=== PATIENT | female | born 1980 | race Caucasian/White ===

== ENCOUNTER → 2016-09-26 | Outpatient (CLI) | payer BC ==
[2016-09-26 17:44] LABS: FREE T4 0.96 NG/DL (0.76-1.46)
== END ==
LOC: M WUC 13:22
PROVIDERS: ATTEND Nurse Practitioner Family
DX: E66.3 Overweight (principal)

== ENCOUNTER → 2018-08-18 | Outpatient (CLI) | payer BC ==
--- NOTE | 2018-08-18 21:40 | REP ---
Clinical: Trauma/injury. Technique: AP and lateral views of the right scapula. Findings: Scapula appears intact. The acromioclavicular and glenohumeral joints appear normal. The surrounding soft tissues are unremarkable. Impression: Normal scapula without evidence for acute injury. Electronically Signed by Bruno Beal MD 08/18/2018 09:32 P
== END ==
LOC: M WUC 16:49
PROVIDERS: ATTEND Physician Assistant
DX: M25.511 Pain in right shoulder (principal)

== ENCOUNTER → 2020-12-26 | Outpatient (REF) | payer BC ==
[2020-12-26 13:36] LABS: HEMOGLOBIN 13.9 g/dl (12.0-15.5); MEAN CORPUSCULAR HEMOGLOBIN 31.7 pg (27.0-33.0); MEAN CORPUSCULAR HGB CONC 31.6 g/dl (32.0-36.5); MEAN CORPUSCULAR VOLUME 100.5 fl (80.0-96.0); PLATELET COUNT, AUTOMATED 497 10^3/uL (150-450); RED BLOOD COUNT 4.38 10^6/uL (4.00-5.40); WHITE BLOOD COUNT 7.4 10^3/uL (4.0-10.0)
[2020-12-26 14:14] LABS: ALBUMIN 3.8 GM/DL (3.2-5.2); ALT/SGPT 23 U/L (12-78); BILIRUBIN,TOTAL 0.4 MG/DL (0.2-1.0); BLOOD UREA NITROGEN 13 MG/DL (7-18); CALCIUM LEVEL 9.7 MG/DL (8.5-10.1); CARBON DIOXIDE LEVEL 28 MEQ/L (21-32); CHLORIDE LEVEL 105 MEQ/L (98-107); CHOLESTEROL LEVEL 175 MG/DL (<200); CHOLESTEROL RISK RATIO 3.125 (<5); CREATININE FOR GFR 0.81 MG/DL (0.55-1.30); FERRITIN 27 NG/ML (8-252); GLOMERULAR FILTRATION RATE > 60.0 (>58); GLUCOSE, FASTING 108 MG/DL (70-100); HDL CHOLESTEROL 56 MG/DL (>40); IRON (FE) 41 UG/DL (50-170); LDL CHOLESTEROL 108 MG/DL (<100); NON-HDL-C 119 MG/DL; PERCENT SATURATION 11.8 % (13.2-45.0); POTASSIUM SERUM 4.6 MEQ/L (3.5-5.1); SODIUM LEVEL 139 MEQ/L (136-145); TOTAL IRON BINDING CAPACITY 346 UG/DL (250-450); TOTAL PROTEIN 7.9 GM/DL (6.4-8.2); TRIGLYCERIDES LEVEL 54 MG/DL (<150)
[2020-12-26 14:29] LABS: HEMOGLOBIN A1c 5.6 %
== END ==
LOC: M SFHCPLAZ 11:12
PROVIDERS: ATTEND Student in an Organized Health Care Education/Training Program
DX: E61.1 Iron deficiency (principal); R53.83 Other fatigue; Z13.220 Encounter for screening for lipoid disorders; Z13.1 Encounter for screening for diabetes mellitus

== ENCOUNTER → 2024-05-27 | Outpatient (CLI) | payer BC | LOC: M WUC 14:11 | PROVIDERS: ATTEND Nurse Practitioner Family | DX: M79.672 Pain in left foot (principal) ==